=== PATIENT | female | born 1990 | race Caucasian/White ===

== ENCOUNTER 2023-10-12 22:47 | Emergency (ER) | payer SELFPAY ==
[2023-10-12 23:04] VITALS: BP 129/69; PULSE 86; RESP 20; TEMP 98.5
[2023-10-12] MEDS: ACETAMINOPHEN 325 MG TABLET (FP) PO ONE (23:05)
== END 2023-10-12 23:47 | disposition home or self-care (01) ==
LOC: FER 22:47
DX: M25.562 Pain in left knee (principal); X50.1XXA Overexertion from prolonged static or awkward postures, initial encounter; W01.0XXA Fall on same level from slipping, tripping and stumbling without subsequent striking against object, initial encounter
CPT/HCPCS: 73562-TC-LT-FY; 99283-25